=== PATIENT | male | born 1955 | race Caucasian/White ===

== ENCOUNTER 2017-08-05 06:08 | Day surgery (SDC) | payer MEDICARE ==
[~2017-08-05] VITALS: Ht 182.9 cm; Wt 73.5 kg
[~2017-08-05 06:08] MED LIST: CARV12.5 PO; CLOP75 PO; CORE25TA PO; ECOT81TA2 PO; ENAL5TAB98 PO; FERR324T4 PO; FISH1000 PO; FURO20 PO; HYDR10TA16 PO; LANO0.2510 PO; LASI20TA PO; PLAV75TA PO; POTA-267; PRAV20TA PO; PRAV20TA67 PO
[2017-08-05] MEDS ORDERED: PROPOFOL 200 MG/20 ML AMP OTHER ONE (06:09)
[2017-08-05] MEDS ORDERED: POVIDONE IODINE 5% (ANTISEPSIS KIT) 4 APPLICATIONS EACH NARE PRN (06:45)
[2017-08-05] MEDS ORDERED: LACTATED RINGER'S 1000 ML IV PRN (06:45)
[2017-08-05] MEDS ORDERED: VANCOMYCIN 1000 MG/NS 250 ML IV SCH (06:45)
[2017-08-05] MEDS ORDERED: ceFAZolin 2 GM PREMIX 50 ML IV SCH (06:45)
[2017-08-05] MEDS ORDERED: METOPROLOL TARTRATE 25 MG TAB PO PRN (06:45)
[2017-08-05] MEDS ORDERED: CHLORHEXIDINE GLUCONATE 2 % 1 PACK (2 CLOTHS) TOPICAL PRN (06:45)
[2017-08-05] MEDS ORDERED: NS 1000 ML IV SCH (06:45)
[2017-08-05] MEDS ORDERED: CHLORHEXIDINE GLUCONATE 2 % 1 PACK (2 CLOTHS) TOPICAL SCH (06:45)
[2017-08-05] MEDS ORDERED: MUPIROCIN 2% OINT 1 APPLIC/GM SYR NASAL SCH (06:45)
[2017-08-05] MEDS ORDERED: SODIUM CHLORID 0.9% 500 ML IV PRN (06:45)
[2017-08-05] MEDS ORDERED: POVIDONE IODINE 5% (ANTISEPSIS KIT) 4 APPLICATIONS EACH NARE SCH (06:45)
[2017-08-05] MEDS ORDERED: CARV12.5 PO (06:46)
[2017-08-05] MEDS ORDERED: ENAL2.5T PO (06:46)
[2017-08-05] MEDS ORDERED: CILO50TA PO (06:46)
[2017-08-05] MEDS ORDERED: ASPI81TA23 PO (06:46)
[2017-08-05] MEDS ORDERED: PRAV40TA2 PO (06:46)
[2017-08-05] MEDS ORDERED: DIGO0.25 PO (06:46)
[2017-08-05 06:47] VITALS: BP 146/69; PULSE 70; RESP 18; O2SAT 96
[2017-08-05] MEDS ORDERED: KETAMINE HCL 500 MG/10 ML VIAL ONE (06:53)
[2017-08-05 07:08] LABS: AUTOMATED NEUTROPHIL # 4.3 TH/MM3 (1.8-7.7); BASOPHIL % 0.6 % (0.0-2.0); EOSINOPHIL # 0.3 TH/MM3 (0-0.4); EOSINOPHIL % 3.8 % (0.0-4.0); HEMATOCRIT 33.4 % (39.0-51.0); HEMOGLOBIN 11.2 GM/DL (13.0-17.0); LYMPH % 17.2 % (9.0-44.0); LYMPHOCYTE # 1.1 TH/MM3 (1.0-4.8); MEAN CELL VOLUME 93.8 FL (80.0-100.0); MEAN CORPUSCULAR HEMOGLOBIN 31.5 PG (27.0-34.0); MEAN CORPUSCULAR HGB CONC 33.6 % (32.0-36.0); MEAN PLATELET VOLUME 8.1 FL (7.0-11.0); MONO % 12.6 % (0.0-8.0); MONOCYTE # 0.8 TH/MM3 (0-0.9); NEUT % 65.8 % (16.0-70.0); PLATELET COUNT 105 TH/MM3 (150-450); RED BLOOD COUNT 3.56 MIL/MM3 (4.50-5.90); RED CELL DISTRIBUTION WIDTH 14.1 % (11.6-17.2); WHITE BLOOD COUNT 6.6 TH/MM3 (4.0-11.0)
[2017-08-05 07:18] LABS: INTERNATIONAL NORMALIZED RATIO 1.2 RATIO
[2017-08-05 07:33] LABS: BICARBONATE 27.1 MEQ/L (21.0-32.0); CALCIUM 8.7 MG/DL (8.5-10.1); CREATININE 0.82 MG/DL (0.60-1.30)
[2017-08-05] MEDS ORDERED: VANCOMYCIN 500 MG VIAL ONE (07:42)
[2017-08-05] MEDS ORDERED: LIDOCAINE HCL 2% 50 ML VIAL ONE (07:42)
[2017-08-05] MEDS ORDERED: GENTAMICIN SULFATE 80 MG/2 ML VIAL ONE (08:09)
[2017-08-05] MEDS ORDERED: SODIUM CHLORIDE 0.9% FLUSH 10 ML FLUSH IV FLUSH PRN (08:45)
[2017-08-05] MEDS ORDERED: ACETAMINOPHEN/CODEINE 300 MG/30 MG TAB PO PRN ×2 (08:45)
[2017-08-05] MEDS ORDERED: ONDANSETRON HCL 4 MG/2 ML VIAL IV PUSH PRN (08:45)
[2017-08-05] MEDS ORDERED: ACET1TAB94 PO (08:50)
[2017-08-05] MEDS ORDERED: CEPH-460 PO (08:50)
[2017-08-05] MEDS ORDERED: SODIUM CHLORIDE 0.9% FLUSH 10 ML FLUSH IV FLUSH SCH (09:00)
--- NOTE | 2017-08-05 09:08 | CATHPROC ---
Patient Name: RACHEAL ORNELAS Study #: [id number] Initial MD: Murali Gutierrez Date of : 1955 Study Date: 08/05/2017 Cardiac Catheterization Report 08/05/2017 9:07:52 AM Financial #: [id number] 1 of 8 Patient Name: RACHEAL ORNELAS Study #: [id number] Initial MD: Murali Gutierrez Date of : 1955 Study Date: 08/05/2017 Entire Case Report Patient Information Patient Name RACHEAL ORNELAS Date of 1955 Age 61 years Financial # [id number] Gender M AlternateID Lab Number 2 Room Number DC05 Height (in) 72.0 Height (cm) 182.8 BSA 1.95 Weight (lbs) 161.7 Weight (kg) 73.5 Patient Address/Phone Number Home Address [facility] Home Phone Number [address] [phone] Study Information Study Number Admission Scheduled Start Study Start [id number] Aug 05 2017 6:08AM 08/05/2017 Aug 05 2017 7:08AM [facility] Cardiac Pacer/ICD Admit Source Facility Department Other [facility] - Human Services Instructor Physician and Clinical Staff Initial Murali Medina Motion Picture Set Worker Elif Cotto RN Other Anesthesia, RN TELEPHONE TRIAGE Recorder Zaira Ramey,TAURUS TECH2 Scrub Baltazar MelgarRT(R) 08/05/2017 9:07:52 AM Financial #: [id number] 2 of 8 Patient Name: RACHEAL ORNELAS Study #: [id number] Initial MD: Murali Gutierrez Date of : 1955 Study Date: 08/05/2017 Equipment Time Meat Stuffer Description Size Mfg Part Number Used/Scraped [employer]/ EP 08:34 DEFIBRILLATOR, 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 PRODUCTION WORKER-D G151 [id number] 04-07-2019 ICD, ECM LARGE [id number] 01-26-2020 Insurance Information Insurance Payor Medicare Third Constitution Party Third Constitution Party Number MEDICARE A B MCRAB History: Allergies Allergy Reaction No Known Allergies PER RN 08/05/2017 9:07:52 AM Financial #: [id number] 3 of 8 Patient Name: RACHEAL ORNELAS Study #: [id number] Initial MD: Murali Gutierrez Date of : 1955 Study Date: 08/05/2017 History: Risk Factors Hypertension Dyslipidemia Previous PR Previous Heart Failure Yes Yes Yes Yes Prior CABG Yes Peripheral Artery Disease Yes History: Stress Tests Stress or Imaging Studies Performed No History: Other Current Smoker Method Packs a Day Years Used Pack Years Yes Cigarettes 1 45 45 Labs Hgb (g/dl) Hct (%) RBC (MIL/MM3) WBC (l/cumm) Platelets (thousands) 11.60-17.00 35.00-51.00 4.00-5.90 4.00-11.00 150.00-450.00 11.2 33.4 3.5 6.6 105 Glucose (mg/dl) BUN (mg/dl) Creatinine (mg/dl) BUN:Creatinine (1:x) 74.00-106.00 7.00-18.00 0.50-1.30 10.00-20.00 113 18 0.8 22.5 Na (meq/l) K (meq/l) Ca (mg/dl) 136.00-145.00 3.50-5.10 8.50-10.10 141 3.8 8.7 PT (sec) PTT (sec) INR (PTT:PT) 9.80-11.60 24.30-30.10 0.90-1.10 12 31 1.2 CPK-MB (ng/ML) 0.50-3.60 Not Drawn Medication Medication Total Dose (Bolus/Oral) Medication Total Dosage/Unit 2% XYLOCAINE 50 mL 08/05/2017 9:07:52 AM Financial #: [id number] 4 of 8 Patient Name: RACHEAL ORNELAS Study #: [id number] Initial MD: Murali Gutierrez Date of : 1955 Study Date: 08/06/19 Medications (Bolus/Oral) Medication Time Given Dosage/Unit Administered By Reason 2% XYLOCAINE 08/05/2017 8:03:15 AM 50 mL Murali Gutierrez 50 mL 2% XYLOCAINE given in lab by Murali Gutierrez via Subcutaneous. Medication (Drip) Medication Time Given Dosage/Unit Concentration/Unit Diluent (ml) Solutio n ANCEF 08/05/2017 7:30:10 AM 2 g 2 g ANCEF given in lab by Anesthesia, RN TELEPHONE TRIAGE in Right Forearm via Peripheral IV. Ordered by Francisco Gutierrez. IV Solutions 08/05/2017 7:27:12 AM 0 mL (IV) 500 NaCl .9 Patient arrived on IV Solutions in Left Forearm via Peripheral IV. Pump/Drip Flow = 20 ml/hr using Na Cl .9. Ordered by Murali Gutierrez. IV Solutions 08/05/2017 7:27:15 AM 0 mL (IV) 500 NaCl .9 Patient arrived on IV Solutions in Right Forearm via Peripheral IV. Pump/Drip Flow = 20 ml/hr using N aCl .9. VANCOMYCIN DRIP 08/05/2017 7:30:24 AM 1 g 1 g VANCOMYCIN DRIP given in lab by Anesthesia, RN TELEPHONE TRIAGE in Right Forearm via Peripheral IV. Ordered by Murali Weathers. Initial Case Assessment Cardiovascular HR Rhythm NIBP Chest Pain 82 paced 165/70 0 Neurological State Oriented to time-place- Alert Moves all extremities person Respiration - General Respiration Rate SpO2 (%) (B/min) 13 99 Vitals Summary Pain Time HR NIBP SpO2 Resp Temp EtCO2 Apnea Janna Cross Comment Level 07:27:56 82 165/70 99.0 13 08:41:17 78 90/54 100.0 19 Chronological Log Time Study Chronological Log 7:20:31 Patient arrived via Bed. 7:20:33 Patient Name, D.O.B, / Armband Verified By R.N. 7:20:39 Anesthesia at bedside. LILY Del Castillo Assumes care of patient. 7:21:35 Pre-op and post- op instructions given; patient acknowledges understanding of instructions . 7:22:05 Disposable Defibrillator Pads Placed On Patient. 7:22:06 Cristy Prominences Protected 08/05/2017 9:07:52 AM Financial #: [id number] 5 of 8 Patient Name: RACHEAL ORNELAS Study #: [id number] Initial MD: Murali Gutierrez Date of : 1955 Study Date: 08/05/2017 7:22:21 Bovie ground pad applied to: left thigh 7:23:43 Table restraints applied according to hospital policy 7:24:36 Verbal Stimulation=2 Physical Stimulation=2 Airway=2 Respiration=2 TOTAL=8. (0=absent, 1=li mited, 2=present) 7:26:34 Consent signed by the physician and the patient and verified by the Human Services Instructor staff. 7:26:58 Presedation assessment performed by Human Services Instructor RN. 7:27:02 Patient has been NPO for More than 6Hrs. 7:27:03 Skin Breakdown-generalized scabs noted 7:27:11 A # 20 IV was noted in the Forearm (left). Grade = patent Patient arrived on IV Solutions in Left Forearm via Peripheral IV. Pump/Drip Flow = 20 ml/hr us ing NaCl .9. Ordered by 7:27:12 Murali Gutierrez. 7:27:14 A # 20 IV was noted in the Forearm (right). Grade = patent 7:27:15 Patient arrived on IV Solutions in Right Forearm via Peripheral IV. Pump/Drip Flow = 20 ml/ hr using NaCl .9. 7:27:26 2% CHLORHEXIDINE GLUCONATE WASH AND NASAL SWIPE DONE PRIOR TO PROCEDURE. 7:27:36 History and physical on the chart or being dictated. 7:27:56 HR=82 bpm, RRJJ=531/70 mmhg, SpO2=99 %, Resp=13 B/min Assessment: Initial Case, HR=82 BPM, Rhythm=paced, XGOR=832/70 mmhg, Chest Pain=0 7:28:24 Neurological: State=Alert, Ox3, PATEL Respiration: Resp=13 B/min, SpO2=99 % 7:30:10 2 g ANCEF given in lab by Anesthesia, RN TELEPHONE TRIAGE in Right Forearm via Peripheral IV. Ordered by Murali Weathers. 7:30:24 1 g VANCOMYCIN DRIP given in lab by Anesthesia, RN TELEPHONE TRIAGE in Right Forearm via Peripheral IV. Or dered by Murali Gutierrez. 7:36:34 Right Upper Chest Prepped and draped after a 3 min. dry time. 7:39:45 MD paged 7:40:03 MD responded First Sponge And Instrument Count Done by Baltazar Melgar, RT(R). 7:42:36 Hypo's: 2, Sponges: 20, Bovie/scratch: 2 Sutures: 2, Blades: 1, Instruments: 27, Syveck Patches: 0 Verified by Tino Cotto RN 7:49:52 Reference ECG taken 7:57:41 MD arrived. 8:00:15 Lead placement verified under fluoroscopy. Time Out. Correct patient, procedure, procedure equipment, site and side verified with physicia n present. Time 8:03:00 concurred by MD, individual staff and RN TELEPHONE TRIAGE. Time Out #2 - Consents verified, patient in correct position, all results are labled and displa yed, safety precautions 8:03:00 taken, antibiotics administered. Time out concurred by MD, individual staff and RN TELEPHONE TRIAGE in procedu re 8:03:13 Case Start 8:03:15 50 mL 2% XYLOCAINE given in lab by Murali Gutierrez via Subcutaneous. 8:06:12 Surgical Incision Made. 8:07:30 A pocket was opened at the R Upper Chest. 8:08:31 The pocket was debrided using the plasma blade. 8:22:47 Cormatrix ECM envelope presoaked in a solution of 250 ml NS and 500 mg Vancomycin. 08/05/2017 9:07:52 AM Financial #: [id number] 6 of 8 Patient Name: RACHEAL ORNELAS Study #: [id number] Initial MD: Murali Gutierrez Date of : 1955 Study Date: 08/05/2017 8:25:36 A device was explanted. 8:27:58 Pocket flushed with antibiotic solution A DEFIBRILLATOR, DYNAGEN FURNITURE LUMBER PRODUCTION WORKER-D was connected and placed in the pocket. The device was placed i n the Cormatrix 8:29:45 ECM envelope. 8:34:22 The Cormatrix and device were sutured to the fascia. 8:38:12 Closing the pocket. Second Sponge And Instrument Count Done by Baltazar Melgar RT(R). 8:38:40 Hypo's: 2, Sponges: 20, Bovie/scratch: 2 Sutures: ~SUTURE~, Blades: 1, Instruments: 27, Syveck Patches: 0 Verified by Tino Cotto RN 8:41:17 HR=78 bpm, NIBP=90/54 mmhg, MgM2=373 %, Resp=19 B/min 8:42:14 Implant Procedure was performed. 8:42:24 A Bivent ICD Implant . (Dual) Gen change 8:45:33 A 2.0 Vicryl added to the count. 8:54:03 The pocket was closed. 8:54:29 Case End The Final Sponge And Instrument Count Done by Baltazar Melgar RT(R). 8:55:11 Hypo's: 2, Sponges: 20, Bovie/scratch: 2 Sutures: 3, Blades: 1, Instruments: 27, Syveck Patches: 0 Verified by Tino Cotto RN 8:56:51 Steri-strips and a sterile dressing applied to site. 8:57:19 Implantable Device card placed in patient's chart. 8:57:24 Cine recording checked. 9:00:46 Bedside Report will be given. 9:07:10 Patient moved to bed 9:09:24 Patient transported to DOCU. End Study - Contrast Media Used In Study Contrast Total Opened (mL) Total Used (mL) Total Wasted (mL) Unspecified 0 0 0 End Study - Maximum Contrast Load Max Contrast Load (mL) 459.4 End Study - Radiation Exposure Fluoro Time (minutes) 0.1 08/05/2017 9:07:52 AM Financial #: [id number] 7 of Patient Name: RACHEAL ORNELAS Study #: [id number] Initial MD: Murali Gutierrez Date of : 1955 Study Date: 08/05/2017 End Study - Patient Disposition Complications Transferred To Interventional Outcome No Outpatient Bed successful 08/05/2017 9:07:52 AM Financial #: [id number]
[2017-08-05] MEDS ORDERED: MIDAZOLAM HCL 2 MG/2 ML VIAL ONE (09:15)
--- NOTE | 2017-08-05 09:25 | MP ---
cc: Murali Gutierrez MD DATE OF OPERATION: 08/05/2017 PROCEDURE PERFORMED: Biventricular pacer defibrillator removal, biventricular pacer defibrillator replacement and pocket revision. INDICATION: Mr. Rivera is a 61-year-old gentleman with history of congestive heart failure, cardiomyopathy, previous biventricular pacer defibrillator implanted in 2010 and generator currently end of life, admitted for generator replacement and pocket revision. The risks, the nature and the benefits of the procedure are clearly stated to him. Risks include pneumothorax, cardiac perforation, stroke and even . The patient understood and agreed to proceed. Last echo ejection fraction is around 35%. The patient is on optimal medical treatment. The patient also has coronary artery disease. DESCRIPTION OF PROCEDURE: After written informed consent was obtained, the patient was brought to the EP lab where he was evaluated by the anesthesiologist. Once sedation verified, the right infraclavicular area was anesthetized with 2% Xylocaine. Using a #11 blade scalpel, a 2 cm incision was made over the existing generator. The incision was taken down to deep fascial layer using Bovie cautery and blunt dissection. Once exposed the generator was removed from the pocket. There was a lot of scar around the lead. It took around 30-minutes to remove all the scar and free the leads. Then, the generator was removed from the pocket. At that point, the pocket was also expanded. The pocket was copiously irrigated using antibiotic solution. A CorMatrix patch was placed around the generator and placed into the pocket. The CorMatrix patch was previously soaked in vancomycin for over 5 minutes. Then, the lead was disconnected from the old generator and connected to the new generator and the CorMatrix patch and the new generator placed into the pocket. I did proceed with wound closure. The deep fascial layer was approximated with #2-0 Vicryl suture in a continuous fashion. The subcutaneous layer was approximated with #2-0 Vicryl suture in a continuous fashion. The subcuticular layer was approximated with #2-0 Vicryl suture in a continuous fashion. Dermabond adhesive was applied to the wound followed by sterile pressure dressing. There was no complication. The patient tolerated the procedure. Blood loss minimal. 1. Explanted hardware. The explanted generator is a [employer] model number N119, serial number [id number]. That was implanted in 09/2010. 2. Implanted hardware. The implanted biventricular pacer defibrillator is a [employer] model number G151, serial number [id number]. 3. Threshold. The right atrial pacing threshold in bipolar mode cannot be measured. The patient is in atrial fibrillation. Lead impedance 530 ohms. P wave at 0.4 millivolt. The right ventricular pacing threshold in bipolar mode was 1.6 volts at 1.5 millisecond, lead impedance measured 85 ohms, R wave at 12.6 millivolts. The left ventricular pacing threshold in bipolar mode was 1.4 volt at 1.5 millisecond, lead impedance 300 ohms, R wave at 6.9 millivolt. 4. Setting. The device set in DDR 60, upper rate limit 130 beats per minute. Defibrillator portion for 2 zones, 1 zone for ventricular tachycardia between 180-240 beats per minute. Initial therapy consists of one burst of ATP, 1 ramp, 81%, 10 pause, 70 second decremental, followed by 21 then 31 and a second shock at 31 joule defibrillator shock. Second zone for ventricular fibrillation above 240 beats per minute, first therapy at 31 and a second shock 41 joule defibrillatory shock. CONCLUSION: Successful biventricular pacer defibrillator removal, biventricular pacer defibrillator replacement, extended for pocket revision. COMMENT AND RECOMMENDATIONS: The patient is going to be transferred to the recovery room. Will be observed and discharged home later today. MD LASHAUN Bob/PALMER , 08:44 AM , 09:25 AM
--- NOTE | 2017-08-05 21:49 | EKG ---
Date Performed: 08/05/2017 Time Performed: 07:07:26 PTAGE: 61 years EKG: Ventricular pacing. Pacemaker rhythm - no further analysis Abnormal ECG PREVIOUS TRACING : 11/19/2015 20.25 Since the previous tracing, no significant change noted DOCTOR: Chuy Blel Interpretating Date/Time 08/05/2017 21:48:00
== END 2017-08-05 11:52 | disposition home or self-care (01) ==
LOC: HDOC 06:08 → HDIC 06:09 → HDOC 11:52
PROVIDERS: ATTEND Internal Medicine Interventional Cardiology
DX: Z45.02 Encounter for adjustment and management of automatic implantable cardiac defibrillator (principal); I11.0 Hypertensive heart disease with heart failure; I50.20 Unspecified systolic (congestive) heart failure; I25.5 Ischemic cardiomyopathy; I48.91 Unspecified atrial fibrillation; I25.2 Old myocardial infarction; I73.9 Peripheral vascular disease, unspecified; I25.10 Atherosclerotic heart disease of native coronary artery without angina pectoris; R06.00 Dyspnea, unspecified; R53.83 Other fatigue; F17.210 Nicotine dependence, cigarettes, uncomplicated
CPT/HCPCS: 00530; 33264; 80048; 85025; 85610; 85730; 86850; 86900; 86901; 93005; C1882; J0690; J1580; J2250; J3370; J7030; J7040